=== PATIENT | female | born 1950 | race Caucasian/White ===

== ENCOUNTER 2018-11-05 18:17 | Emergency (ER) | payer MEDICARE ==
[~2018-11-05] VITALS: Ht 157.5 cm; Wt 59.1 kg
[2018-11-05 18:17] VITALS: Ht 157.5 cm; Wt 59.1 kg
[~2018-11-05 18:17] MED LIST: EPINEPHrine 0.1 MG/ML SYG ONE
--- NOTE | 2018-11-05 18:41 | ERD ---
ER Documentation Chief Complaint Chief Complaint Cardiac arrest HPI 68-year-old female unknown past medical history arrives via cardiac arrest. EMS reports that the patient had a asystolic cardiac arrest in the field, transient return of spontaneous circulation, patient was intubated in the field and upon arrival has no pulses. Remainder of HPI is very limited. Critical patient. ROS Critical patient FmHx Unknown Physical Exam Physical Exam General: Unresponsive Head: Normocephalic, atraumatic Eyes: Fixed and dilated pupils ENT: Moist mucous membranes Neck: Supple, no lymphadenopathy Respiratory: No spontaneous respiratory activity Cardiovascular: No spontaneous cardiac activity Abdominal: Soft, non-protuberant, no pulsatile mass, protuberant : Deferred MSK: No spontaneous motor activity, lower extremity edema Neurologic: No spontaneous neurologic activity Skin: No evidence of trauma Procedures/MDM PROCEDURES: Intubation Note: Indication: Airway protection Consent: This was an emergent situation, implied consent was observed RSI Medications: Not required Tube size: 7.0 Secured at: 22 Procedure: Endotracheal intubation was performed. The patient was preoxygenated with supplemental oxygen, the room was set up with emergency airway equipment including [id number], suction, and adjunct airways. Direct visualization of the cords was performed with direct laryngoscopy using video laryngoscope, insertion of the endotracheal tube through the cords was visualized. Bilateral breath sounds were auscultated, color change was observed. The tube was then secured in a postintubation chest x-ray was ordered. The patient tolerated the procedure well there were no complications. Central Line Note: Consent: Critical patient, unable to obtain informed consent Indication: Critically ill patient requiring specialized vascular access for fluid or pressor management Location: Right femoral vein Indication: Cardiac arrest Procedure: Sterile procedure was observed throughout insertion of the central line. The insertion site was prepped with sterile solution. Ultrasound-guided identification of the vein was performed. Insertion of a needle into the vein was obtained with return of dark, nonpulsatile blood. The procedure was aborted because the patient's resuscitation efforts were futile. Further procedure was not indicated or necessary at this time. Emergency Bedside Ultrasound: Indication: Cardiac arrest Probe Type: Cardiac probe Findings: Cardiac silhouette identified without evidence of effusion, no spontaneous cardiac activity was noted. MEDICAL DECISION MAKING: The patient arrives in cardiac arrest with asystole. Unclear etiology at this time. The patient requires resuscitation efforts. No pulses and no neurologic activity upon arrival. ER COURSE: * It was reported that the patient had prolonged resuscitation efforts in the field with 10 minutes of downtime prior to arrival, no bystander CPR. The patient has had greater than 20 minutes of ACLS per EMS. * I checked the endotracheal tube upon arrival, the endotracheal tube was not within the airway. Patient was intubated as documented above. * ACLS was continued per protocol. The patient was placed on the monitor. Serial resuscitation efforts revealed persistent asystolic cardiac arrest. The patient had no spontaneous neurologic, cardiogenic, respiratory efforts. * Aggressive resuscitation efforts per protocol including multiple doses of epinephrine were provided. Patient was intubated. Patient had good breath sounds. * Prolonged resuscitation efforts were unsuccessful. A bedside ultrasound revealed no spontaneous cardiac activity. Further resuscitation efforts are likely futile. * Time of was called at 1831 * Family will be notified. DISPOSITION PLAN: Departure Diagnosis: Primary Impression: Cardiac arrest Additional Impression: Asystole Condition: Critical () ESTEBAN LAMBERT MD Nov 05, 2018 18:41
== END 2018-11-05 20:20 | disposition expired ==
LOC: E/R 18:17
DX: I46.9 Cardiac arrest, cause unspecified (principal)
CPT/HCPCS: 31500; 36556; 76937; 92950; 99285; J0171